=== PATIENT | female | born 1990 | race Caucasian/White ===

== ENCOUNTER 2018-04-05 01:24 | Emergency (ER) | payer OTHER ==
[2018-04-05 01:39] VITALS: BP 169/90; PULSE 84; TEMP 97.5; BMI 23.2
--- NOTE | 2018-04-05 01:39 | PDOC ---
History of Present Illness - General Chief Complaint: Headache Stated Complaint: HEADACHE Time Seen by Provider: 04/05/18 01:38 - History of Present Illness Initial Comments: This 27 y.o. woman with a history of Lyme disease and genital herpes presents with 1 week history of painful, sore neck and headache at the top of her head.No recent trauma/ overuse or fever. she notes seeing green and blue spots in her vision : was seen by her outdoor adventure guides and ocular pathology ruled out. Her PMD gave her Augmentin course to empirically treat sinusitis(finished yesterday). Patient denies previous history of chronic migraine or other type headache Past History - Past Medical History Allergies/Adverse Reactions: Allergies Allergy/AdvReac Type Severity Reaction Status Date / Time Iodinated Contrast- Oral and Allergy Verified 04/05/18 01:28 IV Dye valacyclovir [From Valtrex] Allergy Verified 04/05/18 01:28 Home Medications: Ambulatory Orders Naproxen Sodium [Anaprox Ds] 550 mg PO BID PRN #12 tablet 04/05/18 Tizanidine HCl 2 mg PO TID PRN #12 tablet 04/05/18 Review of Systems - Review of Systems Able to Perform ROS?: Yes Comments:: 12 point review of systems is negative except for what is noted in the history of present illness *Physical Exam - Physical Exam Comments: GENERAL: Adult female, alert and oriented 3, in no acute distress HEAD: Normal with no signs of trauma. EYES: PERRLA, EOMI, sclera anicteric, conjunctiva clear. ENT: Ears normal, nares patent, oropharynx clear without exudates. Moist mucous membranes. NECK: Normal range of motion, pain with flexion but supple and without lymphadenopathy, JVD, or masses. Bilateral paraspinal cervical muscles and bilateral trapezius muscles firm and tender to palpation LUNGS: Breath sounds equal, clear to auscultation bilaterally. No wheezes, and no crackles. HEART:Regular rate and rhythm, normal S1 and S2 without murmur, rub or gallop. ABDOMEN:.normal bowel sounds No guarding,tenderness or rebound.No masses No distention. EXTREMITIES: Normal range of motion, no edema. No clubbing or cyanosis. No erythema, or tenderness. NEUROLOGICAL: Cranial nerves II through XII grossly intact. Normal speech. No focal neurological deficits. Moving all 4 extremities normally and equally MUSCULOSKELETAL:, no CVA tenderness SKIN: Warm, Dry, normal turgor, no rashes or lesions noted. Progress Note - Progress Note Progress Note: Patient states that her LMP was 03/21/18 and was normal in duration and flow. She states she is not currently sexually active and therefore is not . Although laboratory proof of non- is usually obtained prior to imaging studies, patient was eager to have a noncontrast head CT and waived laboratory evaluation to ascertain if she is . Noncontrast head CT performed: Preliminary interpretation by Imaging extension service advisor-no evidence of fracture; no evidence of acute intracranial pathology Clinical exam most consistent with muscle contraction/cervical strain and associated cervicogenic headache. Results discussed with the patient. This patient has not had a neurologic workup for her current episode of protracted headache, she will be given referral information for Dr. Bradshaw. She should call the office tomorrow to make a follow-up exam as soon as possible. Meanwhile, prescriptions for Anaprox DS and tizanidine sent to her pharmacy. She should return to ER if she has more severe headache or develops vomiting/ lethargy Patient understands plan and agrees. *DC/Admit/Observation/Transfer Diagnosis at time of Disposition: Headache Qualifiers: Headache type: tension-type Headache chronicity pattern: unspecified pattern Intractability: not intractable Qualified Code(s): G44.209 - Tension-type headache, unspecified, not intractable - Discharge Dispostion Disposition: HOME Condition at time of disposition: Good - Prescriptions Prescriptions: Naproxen Sodium [Anaprox Ds] 550 mg PO BID PRN #12 tablet PRN Reason: Headache Tizanidine HCl 2 mg PO TID PRN #12 tablet PRN Reason: Muscle Spasms - Referrals Referrals: Cash Bradshaw MD [Staff Physician] - Call tomorrow - Patient Instructions Printed Discharge Instructions: Tension Headache Additional Instructions: Anaprox 550mg twice a day as needed for headache;take with food Tizanidine 2mg up to 3 X a day for muscle spasms- this medication will make you sleepy local warmth to neck and upper back muscles call neurologist(Dr Bradshaw)office tomorrow to arrange followup JESUS return to ER if you have high fever/vomiting - Post Discharge Activity
[2018-04-05] MEDS ORDERED: NAPROXEN 500 MG TABLET (FP) PO ONE (02:58)
[2018-04-05] MEDS ORDERED: NAPROXEN 500 MG TABLET (FP) ONE (03:07)
== END 2018-04-05 03:31 | disposition home or self-care (01) ==
LOC: FER 01:24
DX: G44.209 Tension-type headache, unspecified, not intractable (principal)
CPT/HCPCS: 70450-TC; 99282-25

== ENCOUNTER 2018-09-03 14:03 | Emergency (ER) | payer OTHER ==
[2018-09-03 14:16] VITALS: BMI 21.9
--- NOTE | 2018-09-03 14:22 | PDOC ---
History of Present Illness - General Chief Complaint: Injury Stated Complaint: RT SIDE RIB PAIN Time Seen by Provider: 09/03/18 14:19 - History of Present Illness Initial Comments: 09/05/18 09:26 Chief complaint: Rib pain History of present illness: Patient with pain over the lateral lower rt rib cage , right side, for several days. Pain is worse with deep inspiration and movement of the torso and right arm. Review of systems: No fevers/chills, cough, URI symptoms, sore throat, abdominal pain, shortness of breath, nausea, vomiting, diarrhea. Remainder of systems reviewed and found to be negative Past medical history: Patient has multiple symptoms over months duration, including fatigue, malaise, and generally " not feeling well". Recent workup at another hospital included MRI of the brain, spinal tap, and blood work, which were reportedly negative Social/family history reviewed and noncontributory Physical exam: Alert and oriented well-developed well-nourished distress cooperative Afebrile, vital signs normal PERRLA, fundi benign, ENT clear Neck supple without bruit mass or nodes Chest clear with full breath sounds throughout bilaterally. There is mild tenderness over the costal margin, right lower ribs. There is no crepitus or deformity of the chest wall or rib cage CV S1 and S2 normal without murmur or gallop pulses full and symmetric no JVD or edema no bruits Abdomen nondistended. Bowel sounds normal. Soft without masses tenderness organomegaly. Extremities no CCE Skin clear, no rash, adequate turgor and mucous membranes Neurological C2 to 12 intact. Strength full and symmetric. No focal sensory or motor deficits. Gait stable and unimpaired Impression: Atypical chest pain, most likely costochondritis. No signs or symptoms of serious medical illness Plan: Sedimentation rate is 7. Remainder of labs are normal. Reassurance, symptomatic treatment, referred for follow-up to Dr. Josie Vásquez for further rheumatologic evaluation. Fully ambulatory, cheerful, in no distress at discharge Past History - Past Medical History Allergies/Adverse Reactions: Allergies Allergy/AdvReac Type Severity Reaction Status Date / Time Iodinated Contrast- Oral and Allergy Verified 04/05/18 01:28 IV Dye valacyclovir [From Valtrex] Allergy Verified 04/05/18 01:28 Home Medications: Ambulatory Orders Diclofenac Sodium 50 mg PO QID PRN #20 tablet. 09/03/18 COPD: No Other medical history: HERPES,LYME - Suicide/Smoking/Psychosocial Hx Smoking History: Never smoked Have you smoked in the past 12 months: No Number of Cigarettes Smoked Daily: 0 Information on smoking cessation initiated: No Hx Alcohol Use: No Drug/Substance Use Hx: No (DENIES) *Physical Exam - Vital Signs Last Vital Signs Temp Pulse Resp BP Pulse Ox 98.8 F 80 20 150/95 100 09/03/18 14:04 09/03/18 14:04 09/03/18 14:04 09/03/18 14:04 09/03/18 14:04 ED Treatment Course - LABORATORY CBC & Chemistry Diagram: 09/03/18 16:10 09/03/18 16:10 *DC/Admit/Observation/Transfer Diagnosis at time of Disposition: Costochondral chest pain - Discharge Dispostion Disposition: HOME Condition at time of disposition: Stable Decision to Admit order: No - Prescriptions Prescriptions: Diclofenac Sodium 50 mg PO QID PRN #[address] tablet[address] GUTIERREZ Reason: Pain - Referrals Referrals: Hanna Vásquez MD [Staff Physician] - 1 week - Patient Instructions Printed Discharge Instructions: DI for Costochondritis Additional Instructions: rest, gentle ice massage to lower chest anti-inflammatory medication as directed. see specialist for further evaluation and treatment as directed. - Post Discharge Activity
[2018-09-03 16:24] LABS: BASO % 0.6 % (0-2.0); EOS % 1.5 % (0-4.5); HEMATOCRIT 37.6 % (32.4-45.2); HEMOGLOBIN 12.1 GM/dl (10.7-15.3); LYMPH % 20.9 % (8-40); MCH 26.5 pg (25.7-33.7); MCHC 32.1 g/dl (32.0-36.0); MEAN CELL VOLUME 82.5 fl (80-96); MEAN PLT VOLUME 9.1 fl (7.5-11.1); MONO % 5.3 % (3.8-10.2); NEUT % 71.7 % (42.8-82.8); PLATELET COUNT 243 K/MM3 (134-434); RBC 4.57 M/mm3 (3.60-5.2); RDW 13.9 % (11.6-15.6); WHITE BLOOD COUNT 7.2 K/mm3 (4.0-10.8)
[2018-09-03 16:43] LABS: ALBUMIN 4.5 g/dl (3.4-5.0); BILIRUBIN,TOTAL 0.9 mg/dl (0.2-1); CALCIUM 9.5 mg/dl (8.5-10); CREATININE 0.4 mg/dl (0.55-1.3); POTASSIUM 3.6 mmol/L (3.5-5.1); TOT PROT 8.1 g/dl (6.4-8.2)
[2018-09-03 17:27] VITALS: BP 124/77; PULSE 83; TEMP 98.3
== END 2018-09-03 17:57 | disposition home or self-care (01) ==
LOC: FER 14:03
DX: R07.89 Other chest pain (principal); A69.20 Lyme disease, unspecified
CPT/HCPCS: 36415; 71045-TC-FY; 80053; 81003; 84703; 85025; 85651; 99281-25

== ENCOUNTER 2018-09-05 22:04 | Emergency (ER) | payer OTHER ==
[2018-09-05 22:18] VITALS: BMI 21.9
--- NOTE | 2018-09-05 23:10 | PDOC ---
History of Present Illness - General Chief Complaint: Sore Throat Stated Complaint: HEADACHE Time Seen by Provider: 09/05/18 22:29 - History of Present Illness Initial Comments: 28yo F with PMH of genital herpes, thyroid cyst presenting with multiple complaints starting about one month ago including abnormal throat sensation, pre -syncope, muscle cramps, loss of appetite, nausea, dry cough, and diarrhea. Patient presents to this ED because of concern for worsening symptoms and her headache which she describes as "throbbing." Took tylenol around 2pm with no relief of symptoms. This headache differs from headaches she has had in the past in that this is more severe. Patient endorses some sensitivity to light as well as seeing "pink flashing lights" and "green" today. She states she has felt lightheaded and had three instances today in which she felt like she was going to pass out. No urinary symptoms or abdominal pain. Has been able to swallow food and saliva without any difficulty. Due to a lessened appetite, she feels she is not well hydrated. Denies recent travel or sick contacts. Changed her makeup about three weeks ago and has had new clothing but denies a correlation with her symptoms. Received rabies booster shots on Monday and Monday after possible exposure to a bat (had series of three shots for rabies vaccine in 2010). Last menstrual period was on 08/09/18. Per chart review, patient was seen on 09/03/18 for right-sided rib pain and had a negative workup. Patient saw her primary care physician today and was evaluated with an EKG that was reportedly "normal," with no other workup or interventions. Reports low- grade fever of 99.5F as well as chills. PCP: Dr. Leon Bee Past History - Past Medical History Allergies/Adverse Reactions: Allergies Allergy/AdvReac Type Severity Reaction Status Date / Time diphenhydramine Allergy Severe Swelling Verified 09/05/18 22:13 [From Benadryl] prednisone Allergy Severe Swelling Verified 09/05/18 22:13 Iodinated Contrast- Oral and Allergy Verified 09/05/18 22:13 IV Dye valacyclovir [From Valtrex] Allergy Verified 09/05/18 22:13 Home Medications: Ambulatory Orders Diclofenac Sodium 50 mg PO QID PRN #20 tablet. 09/03/18 COPD: No - Suicide/Smoking/Psychosocial Hx Smoking History: Never smoked Have you smoked in the past 12 months: No Number of Cigarettes Smoked Daily: 0 Information on smoking cessation initiated: No Hx Alcohol Use: No Drug/Substance Use Hx: No Review of Systems - Review of Systems Comments:: Constitutional: +low-grade fever, +chills HEENT: +abnormal throat sensation, no dysphagia Cardiovascular: no chest pain, no palpitations Respiratory: +cough, no shortness of breath Gastrointestinal: +nausea, +diarrhea Genitourinary: no dysuria, no frequency Musculoskeletal: +myalgia, no arthralgia Skin: +rash, no itching Neurologic: +headache, +lightheaded *Physical Exam - Vital Signs Last Vital Signs Temp Pulse Resp BP Pulse Ox 98.0 F 78 18 156/94 100 09/05/18 22:10 09/05/18 22:10 09/05/18 22:10 09/05/18 22:10 09/05/18 22:10 - Physical Exam Comments: General: Awake, alert, and fully oriented, anxious Head: No signs of trauma Eyes: EOMI, sclera anicteric, Visual acuity with corrective glasses: OD 20/20, OS 20/20, OU 20/15 ENT: Dry mucus membranes Neck: Normal ROM, supple Lungs: Lungs clear, Normal breath sounds Cardio: Regular rhythm, S1 and S2 present; Chest: Tenderness to palpation overlying lateral lower right-sided ribs Abdomen: Soft, nontender. No guarding, no rebound, no masses Extremities: Normal range of motion, Distal pulses present SKIN: Warm, Dry, normal turgor Neurologic: Cranial nerves II through XII intact. Normal speech, sensation, strength, coordination, and gait. ED Treatment Course - LABORATORY CBC & Chemistry Diagram: 09/05/18 23:30 09/05/18 23:30 Medical Decision Making - Medical Decision Making 28yo F with PMH of genital herpes, thyroid cyst presenting with multiple complaints including abnormal throat sensation, pre-syncope, muscle cramps, loss of appetite, nausea, dry cough, diarrhea, and headache. DDX including but not limited to tension headache, dehydration, complex migraine , retinal detachment, intracranial mass, allergic reaction, rheumatologic disorder, MS, psychiatric disorder CBC, CMP CT Head Toradol, Reglan, 1L NS 09/05/18 23:08 Normal visual acuity exam. Bedside ocular ultrasound without any signs of retinal detachment Will obtain CT head to rule out acute intracranial pathology, though headache is likely due to dehydration as the patient has had poor po intake today. Other symptoms may be rheumatologic in nature which can be further worked up on an outpatient basis. Patient received rheumatology referral on 09/03/18. Patient signed out to Dr. Butcher 09/06/18 00:04 *DC/Admit/Observation/Transfer Diagnosis at time of Disposition: Headache Qualifiers: Headache type: unspecified Headache chronicity pattern: acute headache Intractability: not intractable Qualified Code(s): R51 - Headache - Discharge Dispostion Disposition: HOME Condition at time of disposition: Stable - Referrals Referrals: Leon Bee [Primary Care Provider] - - Patient Instructions Printed Discharge Instructions: DI for Headache Additional Instructions: You came to the ED for a headache, as well as other complaints. CT imaging of your head did not show acute pathology. Lab work was unremarkable. An ultrasound of your eye and visual acuity exam were also normal. You can take [id number] tylenol or motrin for your headache. Follow the instructions on the medication bottle. Make sure you keep hydrated especially in this hot weather. Follow-up with your primary care physician in 5-7 days to discuss this ED visit and to further evaluate your symptoms. Your care is not complete until you do so. Call and make an appointment. Medical attention is required if: you experience persistent symptoms, have a seizure, or have focal numbness or weakness. If you think you are having an emergency, call for emergency medical services or present to the emergency department right away - Post Discharge Activity
[2018-09-05] MEDS ORDERED: KETOROLAC TROMETHAMINE 30 MG/1 ML VIAL IVPUSH ONE (23:26)
[2018-09-05] MEDS ORDERED: METOCLOPRAMIDE HCL INJECTION 10 MG/2 ML VIAL IVPUSH ONE (23:26)
[2018-09-05] MEDS ORDERED: SODIUM CHLORIDE 2,000 ML IV STA (23:26)
--- NOTE | 2018-09-05 23:42 | PDOC ---
*Physical Exam - Vital Signs Last Vital Signs Temp Pulse Resp BP Pulse Ox 98.0 F 78 18 156/94 100 09/05/18 22:10 09/05/18 22:10 09/05/18 22:10 09/05/18 22:10 09/05/18 22:10 ED Treatment Course - LABORATORY CBC & Chemistry Diagram: 09/05/18 23:30 09/05/18 23:30 Medical Decision Making - Medical Decision Making I have assumed care of the patient from Dr. Balderas, who has discussed the clinical presentation, work-up, and ED course thus far Pt pending labs, CT head, IVF, Reglan, Toradol 09/05/18 23:43 S/p 2L IVF BRIONES resolved Plan for D/C w/ PCP and Neurology f/u Discharge instructions and return precautions given Pt in agreement and verbalized understanding Dispo: home 09/06/18 03:19 *DC/Admit/Observation/Transfer Diagnosis at time of Disposition: Headache Qualifiers: Headache type: unspecified Headache chronicity pattern: acute headache Intractability: not intractable Qualified Code(s): R51 - Headache - Discharge Dispostion Disposition: HOME Condition at time of disposition: Stable Decision to Admit order: No - Referrals Referrals: Leon Bee [Primary Care Provider] - Cash Bradshaw MD [Staff Physician] - - Patient Instructions Printed Discharge Instructions: DI for Headache Additional Instructions: You came to the ED for a headache, as well as other complaints. CT imaging of your head did not show acute pathology. Lab work was unremarkable. An ultrasound of your eye and visual acuity exam were also normal. You can take [id number] tylenol or motrin for your headache. Follow the instructions on the medication bottle. Make sure you keep hydrated especially in this hot weather. Follow-up with your primary care physician in 5-7 days to discuss this ED visit and to further evaluate your symptoms. Your care is not complete until you do so. Call and make an appointment. Medical attention is required if: you experience persistent symptoms, have a seizure, or have focal numbness or weakness. If you think you are having an emergency, call for emergency medical services or present to the emergency department right away - Post Discharge Activity
[2018-09-05 23:49] LABS: BASO % 0.6 % (0-2.0); EOS % 1.7 % (0-4.5); HEMATOCRIT 32.3 % (32.4-45.2); HEMOGLOBIN 10.7 GM/dL (10.7-15.3); LYMPH % 25.6 % (8-40); MCH 26.9 pg (25.7-33.7); MCHC 33.2 g/dl (32.0-36.0); MEAN CELL VOLUME 80.9 fl (80-96); MEAN PLT VOLUME 8.7 fl (7.5-11.1); MONO % 8.5 % (3.8-10.2); NEUT % 63.6 % (42.8-82.8); PLATELET COUNT 196 K/MM3 (134-434); RBC 3.99 M/mm3 (3.60-5.2); RDW 14.9 % (11.6-15.6); WHITE BLOOD COUNT 6.9 K/mm3 (4.0-10.0)
[2018-09-05] MEDS ORDERED: KETOROLAC TROMETHAMINE 30 MG/1 ML VIAL ONE (23:51)
[2018-09-05] MEDS ORDERED: METOCLOPRAMIDE HCL INJECTION 10 MG/2 ML VIAL ONE (23:51)
--- NOTE | 2018-09-06 00:12 | PDOC ---
Documentation entered by Gus Almazan SCRIBE, acting as scribe for Flori De Paz DO. Flori De Paz DO: This documentation has been prepared by the Tha mckeon Xhesika, SCRIBE, under my direction and personally reviewed by me in its entirety. I confirm that the documentation accurately reflects all work, treatment, procedures, and medical decision making performed by me. Attending Attestation - Resident Resident Name: Shereen Balderas - ED Attending Attestation I have performed the following: I have examined & evaluated the patient, The case was reviewed & discussed with the resident, I agree w/resident's findings & plan, Exceptions are as noted - HPI HPI: 09/05/18 23:50 The patient is a 28 year old female, with a significant PMH of thyroid cyst and genital herpes who presents to the emergency department with a sore throat, headache, pre-syncopal episodes and muscle cramps. The patient describes her headache as 10/10, severe frontal throbbing headache that radiates to her back. The patient was seen at [facility] on 09/03/18 for R rib cage pain and was discharged home with normal evaluation/results. The patient states she has been endorsing nausea, chills, fevers, 3 episodes of nbnb diarrhea, and some vision changes where she sees pinkish/green lights and "things floating in her eyes." The patient states she has normal PO and solid intake. The patient denies chest pain, shortness of breath. Denies vomit and constipation. Denies dysuria, frequency, urgency and hematuria. Allergies: NKA, NKDA PCP: Leon Rowe - Physicial Exam PE: 09/05/18 23:51 GENERAL: Awake, alert, and fully oriented, in no acute distress HEAD: No signs of trauma EYES: PERRLA, EOMI, sclera anicteric, conjunctiva clear ENT: Auricles normal inspection, hearing grossly normal, nares patent, oropharynx clear without exudates. Moist mucosa NECK: Normal ROM, supple, no lymphadenopathy, JVD, or masses LUNGS: Breath sounds equal, clear to auscultation bilaterally. No wheezes, and no crackles HEART: Regular rate and rhythm, normal S1 and S2, no murmurs, rubs or gallops Chest Wall: (+) Right lower chest wall tenderness to palpation that is reproducible to touch. ABDOMEN: Soft, nontender, normoactive bowel sounds. No guarding, no rebound. No masses EXTREMITIES: Normal range of motion, no edema. No clubbing or cyanosis. No cords , erythema, or tenderness. No c-spine tenderness to palpation. NEUROLOGICAL: Cranial nerves II through XII grossly intact. Normal speech, normal gait. 5/5 muscle strength and sensation. SKIN: Warm, Dry, normal turgor, no rashes or lesions noted. - Medical Decision Making 09/06/18 00:05 I, Dr. Flori De Paz, DO, attest that this document has been prepared under my direction and personally reviewed by me in its entirety. I further attest, that it accurately reflects all work, treatment, procedures and medical decision -making performed by me. 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 -pt states photophobia, flashing sensation to eyes -denies phonophobia -pt states she took tylenol at home without relief of the bowman -pt states she did see neuro clinic at [facility], but never followed up for the recommended MRI -states she does get bowman about 1x a month -no focal neuro findings -visual acuity 20/20 each eye and 20/15 together -bedside ultrasound without acute findings of retinal detachment or vitreous hemorrhage -will obtain head ct, labs -will medicate and re-eval 09/06/18 02:07 pt states bowman improved states she feels "sticky post nasal gtt" posterior pharynx is clear, no erythema no exudates pt speaking in full clear sentences pt given water and drinking water, tolerating secretions swallowing without difficulty will give tylenol for rib pain cxr was negative pending head ct 09/06/18 02:[address] normal per imaging rock contractor without acute findings 09/06/18 02:13 pt states rib pain, but laying on her R side sleeping 09/06/18 02:[address] head with the patient pt feels better stable for dc to home after ivf hydration and replacement of potassium
[2018-09-06 01:05] LABS: BLOOD UREA NITROGEN 3.8 mg/dL (7-18); CREATININE 0.5 mg/dL (0.55-1.3); POTASSIUM 3.2 mmol/L (3.5-5.1)
[2018-09-06 01:06] LABS: ALBUMIN 4.3 g/dl (3.4-5.0); BILIRUBIN,TOTAL 0.7 mg/dL (0.2-1); CALCIUM 7.5 mg/dL (8.5-10.1); TOT PROT 7.1 g/dl (6.4-8.2)
[2018-09-06 01:11] LABS: URINE APPEARANCE CLEAR; URINE BILIRUBIN NEGATIVE (NEGATIVE); URINE COLOR YELLOW; URINE GLUCOSE (UA) NEGATIVE (NEGATIVE); URINE KETONE NEGATIVE (NEGATIVE); URINE LEUK ESTERASE NEGATIVE (NEGATIVE); URINE NITRITE NEGATIVE (NEGATIVE); URINE PROTEIN NEGATIVE (NEGATIVE); URINE UROBILINOGEN 0.2 mg/dL (0.2-1.0)
[2018-09-06] MEDS ORDERED: SODIUM CHLORIDE 0.9% 1000 ML INFUS.BAG IV ONE (01:57)
[2018-09-06] MEDS ORDERED: POTASSIUM CHLORIDE TABS 20 MEQ TABLET.ER (FP) PO ONE ×2 (01:58→02:20)
[2018-09-06] MEDS ORDERED: ACETAMINOPHEN 1000 MG/100 ML VIAL (NON FORMULARY) IVPB ONE (02:06)
[2018-09-06] MEDS ORDERED: ACETAMINOPHEN INJECTION 100 ML IVPB ONE (02:21)
[2018-09-06 03:12] VITALS: TEMP 97.9
[2018-09-06 04:43] VITALS: BP 150/78; PULSE 78
--- NOTE | 2018-09-09 13:48 | EKG ---
Test Reason : Blood Pressure : / mmHG Vent. Rate : 075 BPM Atrial Rate : 075 BPM P-R Int : 130 ms QRS Dur : 096 ms QT Int : 412 ms P-R-T Axes : 038 085 058 degrees QTc Int : 460 ms NORMAL SINUS RHYTHM NORMAL ECG NO PREVIOUS ECGS AVAILABLE Confirmed by MD ULPE, PIOTR ([id number]) on 09/09/2018 1:47:54 PM Referred By: Confirmed By:PIOTR ANDRADE MD
== END 2018-09-06 04:44 | disposition home or self-care (01) ==
LOC: JER 22:04
PROC: 3E033NZ Introduction of Analgesics, Hypnotics, Sedatives into Peripheral Vein, Percutaneous Approach (ICD-10-PCS; principal; 2018-09-05)
PROC: 3E0333Z Introduction of Anti-inflammatory into Peripheral Vein, Percutaneous Approach (ICD-10-PCS; 2018-09-05)
PROC: 3E033GC Introduction of Other Therapeutic Substance into Peripheral Vein, Percutaneous Approach (ICD-10-PCS; 2018-09-05)
PROC: 3E0337Z Introduction of Electrolytic and Water Balance Substance into Peripheral Vein, Percutaneous Approach (ICD-10-PCS; 2018-09-05)
DX: R51 Headache (principal); B00.9 Herpesviral infection, unspecified
CPT/HCPCS: 36415; 70450-TC; 80053; 81003; 84702; 85025; 93005; 93010; 99281-25; J0131; J7030

== ENCOUNTER 2018-09-12 14:47 | Inpatient (IN) | payer OTHER ==
[2018-09-12] MEDS ORDERED: ACETAMINOPHEN 500 MG TABLET (FP) PO ONE (15:14)
[2018-09-12 15:15] VITALS: BMI 21.9
--- NOTE | 2018-09-12 15:15 | PDOC ---
Rapid Medical Evaluation Time Seen by Provider: 09/12/18 15:11 Medical Evaluation: Allergies Allergy/AdvReac Type Severity Reaction Status Date / Time diphenhydramine Allergy Severe Swelling Verified 09/12/18 15:10 [From Benadryl] prednisone Allergy Severe Swelling Verified 09/12/18 15:10 Iodinated Contrast- Oral and Allergy Verified 09/12/18 15:10 IV Dye valacyclovir [From Valtrex] Allergy Verified 09/12/18 15:10 09/12/18 15:11 HPI: sick x1 month with dull headache and weakness, exposed to bat in 2010, received rabavert and recently exposed again but waited 20 days prior to vaccination (asleep in room with bat) PE: No gross deficits ORDERS: Labs Discharge Disposition - Diagnosis Malaise - Referrals - Patient Instructions - Post Discharge Activity
[2018-09-12 15:58] LABS: HCG,QUALITATIVE URINE Negative
[2018-09-12 16:00] LABS: EPI CELLS 0.4 /HPF (0-5/HPF); HYALINE CASTS 0 /lpf (0-8); URINE APPEARANCE CLEAR; URINE BILIRUBIN NEGATIVE (NEGATIVE); URINE COLOR YELLOW; URINE GLUCOSE (UA) NEGATIVE (NEGATIVE); URINE KETONE 1+ (NEGATIVE); URINE LEUK ESTERASE NEGATIVE (NEGATIVE); URINE NITRITE NEGATIVE (NEGATIVE); URINE PROTEIN NEGATIVE (NEGATIVE); URINE RBC 26 /hpf (0-4); URINE UROBILINOGEN 0.2 mg/dL (0.2-1.0); URINE WBC 1 /hpf (0-5)
[2018-09-12 16:17] LABS: BASO % 0.4 % (0-2.0); EOS % 0.6 % (0-4.5); HEMOGLOBIN 10.5 GM/dL (10.7-15.3); MCH 27.2 pg (25.7-33.7); MCHC 32.8 g/dl (32.0-36.0); MEAN CELL VOLUME 82.7 fl (80-96); MONO % 3.9 % (3.8-10.2); NEUT % 73.1 % (42.8-82.8); PLATELET COUNT 253 K/MM3 (134-434); RBC 3.87 M/mm3 (3.60-5.2); RDW 15.4 % (11.6-15.6); WHITE BLOOD COUNT 6.4 K/mm3 (4.0-10.0)
[2018-09-12] MEDS ORDERED: IBUPROFEN 400 MG TABLET (FP) PO ONE ×2 (17:35→18:24)
[2018-09-12 18:12] LABS: ALBUMIN 4.1 g/dl (3.4-5.0); BILIRUBIN,TOTAL 0.6 mg/dL (0.2-1); BLOOD UREA NITROGEN 4.9 mg/dL (7-18); CREATININE 0.6 mg/dL (0.55-1.3); POTASSIUM 3.6 mmol/L (3.5-5.1); TOT PROT 7.5 g/dl (6.4-8.2)
[2018-09-12 18:39] LABS: ALBUMIN 4.4 g/dl (3.4-5.0); BILIRUBIN,TOTAL 0.5 mg/dL (0.2-1); BLOOD UREA NITROGEN 3.4 mg/dL (7-18); CALCIUM 9.5 mg/dL (8.5-10.1); CREATININE 0.6 mg/dL (0.55-1.3); POTASSIUM 3.6 mmol/L (3.5-5.1); TOT PROT 7.7 g/dl (6.4-8.2)
--- NOTE | 2018-09-12 19:41 | PDOC ---
History of Present Illness - General Chief Complaint: Pain, Acute Stated Complaint: DOUBLE VISION/LT LEG PAIN Time Seen by Provider: 09/12/18 15:11 History Source: Patient Exam Limitations: No Limitations Past History - Past Medical History Allergies/Adverse Reactions: Allergies Allergy/AdvReac Type Severity Reaction Status Date / Time diphenhydramine Allergy Severe Swelling Verified 09/12/18 15:10 [From Benadryl] prednisone Allergy Severe Swelling Verified 09/12/18 15:10 Iodinated Contrast- Oral and Allergy Verified 09/12/18 15:10 IV Dye valacyclovir [From Valtrex] Allergy Verified 09/12/18 15:10 Home Medications: Ambulatory Orders NK [No Known Home Medication] 09/12/18 COPD: No Other medical history: rabies exposure 2010, august and september 2018 - Suicide/Smoking/Psychosocial Hx Smoking History: Never smoked Have you smoked in the past 12 months: No Number of Cigarettes Smoked Daily: 0 Hx Alcohol Use: No Drug/Substance Use Hx: No (DENIES) *Physical Exam - Vital Signs Last Vital Signs Temp Pulse Resp BP Pulse Ox 98.4 F 93 H 20 146/87 100 09/12/18 15:12 09/12/18 15:12 09/12/18 15:12 09/12/18 15:12 09/12/18 15:12 - Physical Exam General Appearance: No: Apparent Distress HEENT: positive: EOMI, CYNDI, Other (vision 20/70 R eye, 20/50 L eye, 20/50 both eyes; vision improved to 20/50 R eye with pinhole exam, L eye stayed same with pinhole) Neck: positive: Supple Respiratory/Chest: positive: Lungs Clear, Normal Breath Sounds. negative: Respiratory Distress Cardiovascular: positive: Regular Rhythm, Regular Rate, S1, S2. negative: Murmur Gastrointestinal/Abdominal: positive: Normal Bowel Sounds, Soft. negative: Tender, Distended, Guarding, Rebound Neurologic: positive: ship fitter II-XII NML intact, Fully Oriented, Alert, Normal Mood/ Affect, Motor Strength 5/5, Other (normal gait). negative: Confused, Disoriented ED Treatment Course - LABORATORY CBC & Chemistry Diagram: 09/12/18 15:19 09/12/18 17:51 - ADDITIONAL ORDERS Additional order review: Laboratory Results 09/12/18 09/12/18 09/12/18 17:51 17:51 15:24 D-Dimer < 215 Sodium 137 Potassium 3.6 Chloride 105 Carbon Dioxide 25 Anion Gap 7 L BUN 3.4 L Creatinine 0.6 Est GFR (CKD-EPI)AfAm 142.76 Est GFR (CKD-EPI)NonAf 123.17 Random Glucose 93 Calcium 9.5 Total Bilirubin 0.5 AST 11 L ALT 27 Alkaline Phosphatase 34 L Total Protein 7.7 Albumin 4.4 Urine Color Yellow Urine Appearance Clear Urine pH 5.0 Ur Specific [place] 1.008 L Urine Protein Negative Urine Glucose (UA) Negative Urine Ketones 1+ H Urine Blood 2+ H Urine Nitrite Negative Urine Bilirubin Negative Urine Urobilinogen 0.2 Ur Leukocyte Esterase Negative Urine WBC (Auto) 1 Urine RBC (Auto) 26 Urine Casts (Auto) 0 U Epithel Cells (Auto) 0.4 Urine Bacteria (Auto) 2.0 Urine HCG, Qual Negative 09/12/18 15:19 D-Dimer Sodium 136 Potassium 3.6 Chloride 102 Carbon Dioxide 27 Anion Gap 7 L BUN 4.9 L Creatinine 0.6 Est GFR (CKD-EPI)AfAm 142.76 Est GFR (CKD-EPI)NonAf 123.17 Random Glucose 126 H Calcium 9.0 Total Bilirubin 0.6 AST 11 L ALT 27 Alkaline Phosphatase 32 L Total Protein 7.5 Albumin 4.1 Urine Color Urine Appearance Urine pH Ur Specific [place] Urine Protein Urine Glucose (UA) Urine Ketones Urine Blood Urine Nitrite Urine Bilirubin Urine Urobilinogen Ur Leukocyte Esterase Urine WBC (Auto) Urine RBC (Auto) Urine Casts (Auto) U Epithel Cells (Auto) Urine Bacteria (Auto) Urine HCG, Qual 09/12/18 15:19 RBC 3.87 MCV 82.7 MCHC 32.8 RDW 15.4 MPV 9.0 Neutrophils % 73.1 Lymphocytes % 22.0 Monocytes % 3.9 Eosinophils % 0.6 Basophils % 0.4 - RADIOLOGY Radiology Studies Ordered: Category Date Time Status CHEST CT WITHOUT CONTRAST [CT] Stat CT Scan 09/12/18 18:59 Ordered BRAIN MRI W/O CONTRAST [MRI] Stat MRI 09/12/18 19:13 Ordered CERVICAL SPINE MRI W/O CONTR [MRI] Stat MRI 09/12/18 19:13 Ordered - Medications Given in the ED: ED Medications Discontinued Medications Generic Name Dose Route Start Last Admin Trade Name Freq PRN Reason Stop Dose Admin Acetaminophen 1,000 mg 09/12/18 15:14 09/12/18 18:21 Tylenol - PO 09/12/18 15:15 1,000 mg ONCE ONE Administration Ibuprofen 800 mg 09/12/18 17:35 09/12/18 18:20 Motrin - PO 09/12/18 17:36 800 mg ONCE ONE Administration Medical Decision Making - Medical Decision Making 28 y/o F with hx of genital herpes presents with B/L rib pain for "several weeks " along with c/o changes in vision also going on for several weeks, worsening yesterday. Patient states she is seeing green/pink spots, vertical black lines and has double vision. Also c/o LLE cramps/leg weakness. This is patient's 3rd visit to ED this month for similar complaints. Patient requesting CT of her chest as states her ENT doctor was going to do one for her outpatient; is concerned about possible PE; states her ENT suggested possible mold traveling to her lungs; was recently treated for sinusitis and is concerned the infection is possibly spreading and causing her symptoms. Also mentions she had bat bite her back in 2010 for which she received rabies vaccine and last month, also noted a bat in her room (unsure if it bit her but saw it flying around her house ; got repeat rabies series last month at [facility]). Denies sob, abd pain, n/v/d, urinary complaints. Was on OCPs but they were stopped last month Patient has had CXR and CT head this month which were normal; also has had bedside ocular ultrasound done last visit which was also normal D-dimer negative so unlikely PE Consider MS? Case d/w Dr. Barrow and recommends MRI brain and cervical spine without contrast to further assess; will see her inpatient 09/12/18 19:41 *DC/Admit/Observation/Transfer Diagnosis at time of Disposition: Malaise, Double vision - Discharge Dispostion Decision to Admit order: Yes - Referrals Referrals: Leon Bee [Primary Care Provider] - - Patient Instructions - Post Discharge Activity
--- NOTE | 2018-09-12 21:55 | PN ---
Teaching Attending Note Name of Resident: Elenita Merino ATTENDING PHYSICIAN STATEMENT I saw and evaluated the patient. I reviewed the resident's note and discussed the case with the resident. I agree with the resident's findings and plan as documented. SUBJECTIVE: Seen and examined; please refer to resident note for further historical information. Briefly, this is a 28 y/o female presenting with visual changes and nonspecific neuro symptoms; has been seen here multiple times this month in ER for same complaints. Had concerns of bat exposure (s/p rabies series [facility]- records pending). Neurology recommends inpatient MRI; preliminary read is negative. OBJECTIVE: NAD, AAO, resting in bed Visual disturbances noted with some dip; moves all 4 ext with normal sensorium NC AT EOMI PERRLA RRR s1/2 no mgr Lungs CTAB, w/ sym exp Normal mood, appropriate behavior CBC with mild normocytic anemia (12 earlier, now 12.5), UA with 2+ blood CT chest/abd/pelvis read as essentially normal Brain/C-spine MRI pending final report; negative prelim read per imaging contracts paralegal. ASSESSMENT AND PLAN: Patient presents with visual field changes; will r/o MS per neurology # Visual Changes # Normocytic Anemia # Hematuria # Hx Genital Herpes # ?Bat Exposure s/p rabies series at [facility] Observing on medicine; negative preliminary imaging. Can check B12, inflammatory markers, HIV screen, RPR. Will defer further workup to neurology. Will place on neuro checks overnight. Pending further neurology recommendations can likely be discharged home. Iron studies were sent for anemia and may be followed up nonurgently; she should have repeat UA done nonurgently to ensure followup hematuria. Of note is that the patient is requesting various subspeciality consults and relays history of recent admission to [facility] with extensive workup, concern of fungal infection that ENT was workng her up as an outpatient, etc. I told her that it would be in her best interest to get these records from the OP clinics and outside hospitals in order to coordinate her care. She relayed concerns about the lumbar puncture site which appears normal, etc.
--- NOTE | 2018-09-12 23:18 | HP ---
CHIEF COMPLAINT: Double vision PCP: HISTORY OF PRESENT ILLNESS: Patient presents today with double vision that began a week ago. She describes having new vision problems over the past month. Describes photophobia over the last few weeks from general ambient light and her cellphone. Recently she has been having double vision, along with pink and green flashes of light. Along with black streaks and floaters. These visual disturbances come and go, with her most recent episode occurring during examination. She also endorses a dull headache in the occipital region of head, 1 month of bilateral rib pain with no association with inspiration or expiration , 1 month of dry cough with a mucus feeling in her mouth, low grade fever of 99.5F which she measured at home today, stiff neck, leg weakness for approximately 1month, pain in her lumbar back for a few weeks, along with diarrhea for the past few days and muscle aches. She denies any chest pain or shortness of breath. ER course was notable for: (1)CT of Chest, Abdomen, and pelvis was done w/o contrast and showed no fractures. (2)MR of the c-spine was done which showed no evidence of MS or cord lesions (3)MRI of the brain was done without contrast and showed right maxillary sinusitis. Recent Travel: None PAST MEDICAL HISTORY: Previous exposure to Rabies in 2010, and again 1 month ago. Was given rabies vaccines as per patient. Genital herpes from 2012, last outbreak 1 week ago but unsure. PAST SURGICAL HISTORY: None Social History: Smoking:Denies Alcohol:Occasional drinks on the weekends, no use for past month. Drugs: Denies Family History: Allergies diphenhydramine [From Benadryl] Allergy (Severe, Verified 09/12/18 15:10) Swelling prednisone Allergy (Severe, Verified 09/12/18 15:10) Swelling Iodinated Contrast- Oral and IV Dye Allergy (Verified 09/12/18 15:10) valacyclovir [From Valtrex] Allergy (Verified 09/12/18 15:10) HOME MEDICATIONS: Home Medications Medication Instructions Recorded NK [No Known Home Medication] 09/12/18 REVIEW OF SYSTEMS As above CONSTITUTIONAL: fever, loss of appetite,generalized weakness, weight change ( loss of 10 lbs due to not eating), Absent: chills, diaphoresis,malaise, HEENT: Absent: rhinorrhea, nasal congestion, throat pain, throat swelling, difficulty swallowing, mouth swelling, CARDIOVASCULAR: Absent: chest pain, syncope, palpitations, irregular heart rate, lightheadedness , peripheral edema RESPIRATORY: Absent: cough, shortness of breath, dyspnea with exertion, orthopnea, wheezing, stridor, hemoptysis GASTROINTESTINAL:diarrhea Absent: abdominal pain, abdominal distension, nausea, vomiting, melena, hematochezian MUSCULOSKELETAL: Absent: myalgia, arthralgia, joint swelling, back pain, neck pain SKIN: Absent: rash, itching, pallor HEMATOLOGIC/IMMUNOLOGIC: Absent: easy bleeding, easy bruising, lymphadenopathy, frequent infections ENDOCRINE: Absent: unexplained weight gain, unexplained weight loss, heat intolerance, cold intolerance NEUROLOGIC: Absent: headache, focal weakness or paresthesias, dizziness, unsteady gait, seizure, mental status changes, bladder or bowel incontinence PSYCHIATRIC: Absent: anxiety, depression, suicidal or homicidal ideation, hallucinations. PHYSICAL EXAMINATION Vital Signs - 24 hr 09/12/18 15:12 Temperature 98.4 F Pulse Rate 93 H Respiratory 20 Rate Blood Pressure 146/87 O2 Sat by Pulse 100 Oximetry (%) GENERAL: Awake, alert, and fully oriented, in no acute distress. HEAD: Normal with no signs of trauma. EYES: Pupils equal, round and reactive to light, extraocular movements intact, sclera anicteric, conjunctiva clear. No lid lag. EARS, NOSE, THROAT: Ears normal, nares patent, oropharynx clear without exudates. Moist mucous membranes. NECK: Normal range of motion, supple without lymphadenopathy, JVD, or masses. LUNGS: Breath sounds equal, clear to auscultation bilaterally. No wheezes, and no crackles. No accessory muscle use. HEART: Regular rate and rhythm, normal S1 and S2 without murmur, rub or gallop. ABDOMEN: Soft, nontender, not distended, normoactive bowel sounds, no guarding, no rebound, no masses. No hepatomegaly or splenomegaly. MUSCULOSKELETAL: Normal range of motion at all joints. No bony deformities or tenderness. No CVA tenderness. UPPER EXTREMITIES: 2+ pulses, warm, well-perfused. No cyanosis. No clubbing. No peripheral edema. LOWER EXTREMITIES: 2+ pulses, warm, well-perfused. No calf tenderness. No peripheral edema. NEUROLOGICAL: Cranial nerves II: Visual blind spot in left lower quadrant, diploplia in left upper quadrant. III-XII intact. Normal speech. Normal gait. SKIN: Warm, dry, normal turgor, no rashes or lesions noted, normal capillary refill. Laboratory Results - last 24 hr 09/12/18 09/12/18 09/12/18 15:19 15:19 15:24 WBC 6.4 RBC 3.87 Hgb 10.5 L Hct 32.0 L MCV 82.7 MCH 27.2 MCHC 32.8 RDW 15.4 Plt Count 253 D MPV 9.0 Absolute Neuts (auto) 4.7 Neutrophils % 73.1 Lymphocytes % 22.0 Monocytes % 3.9 Eosinophils % 0.6 Basophils % 0.4 Nucleated RBC % 0 D-Dimer Sodium 136 Potassium 3.6 Chloride 102 Carbon Dioxide 27 Anion Gap 7 L BUN 4.9 L Creatinine 0.6 Est GFR (CKD-EPI)AfAm 142.76 Est GFR (CKD-EPI)NonAf 123.17 Random Glucose 126 H Calcium 9.0 Total Bilirubin 0.6 AST 11 L ALT 27 Alkaline Phosphatase 32 L Total Protein 7.5 Albumin 4.1 Urine Color Yellow Urine Appearance Clear Urine pH 5.0 Ur Specific [place] 1.008 L Urine Protein Negative Urine Glucose (UA) Negative Urine Ketones 1+ H Urine Blood 2+ H Urine Nitrite Negative Urine Bilirubin Negative Urine Urobilinogen 0.2 Ur Leukocyte Esterase Negative Urine WBC (Auto) 1 Urine RBC (Auto) 26 Urine Casts (Auto) 0 U Epithel Cells (Auto) 0.4 Urine Bacteria (Auto) 2.0 Urine HCG, Qual Negative 09/12/18 09/12/18 17:51 17:51 WBC RBC Hgb Hct MCV MCH MCHC RDW Plt Count MPV Absolute Neuts (auto) Neutrophils % Lymphocytes % Monocytes % Eosinophils % Basophils % Nucleated RBC % D-Dimer < 215 Sodium 137 Potassium 3.6 Chloride 105 Carbon Dioxide 25 Anion Gap 7 L BUN 3.4 L Creatinine 0.6 Est GFR (CKD-EPI)AfAm 142.76 Est GFR (CKD-EPI)NonAf 123.17 Random Glucose 93 Calcium 9.5 Total Bilirubin 0.5 AST 11 L ALT 27 Alkaline Phosphatase 34 L Total Protein 7.7 Albumin 4.4 Urine Color Urine Appearance Urine pH Ur Specific [place] Urine Protein Urine Glucose (UA) Urine Ketones Urine Blood Urine Nitrite Urine Bilirubin Urine Urobilinogen Ur Leukocyte Esterase Urine WBC (Auto) Urine RBC (Auto) Urine Casts (Auto) U Epithel Cells (Auto) Urine Bacteria (Auto) Urine HCG, Qual ASSESSMENT/PLAN: 28 year old female with PMH of rabies exposure in 2010 and 1 month ago, genital herpes who presents with nonspecific neurological complaints, with preliminary imaging and labs negative for any neurological lesions. 1) Nonspecific neurological findings: Neurology consulted Patient mentioned many visits to clinics in [facility] and [facility]. Obtaining records and files would help with diagnosing. Vitamin B12, ESR, CRP pending 2)Hematuria in urinalysis Follow up with repeat U/A. Can be done outpatient. 3)Anemia Follow up with iron studies. Can be done outpatient. DVT Prophylaxis: SCDs F: no fluids E: monitor BMP N: regular diet Dispo: Admitted to floors. Problem List - Problem (1) Double vision Code(s): H53.2 - DIPLOPIA (2) Malaise Code(s): R53.81 - OTHER MALAISE (3) Costochondral chest pain Code(s): R07.1 - CHEST PAIN ON BREATHING (4) Headache Code(s): R51 - HEADACHE Qualifiers: Headache type: unspecified Headache chronicity pattern: acute headache Intractability: not intractable Qualified Code(s): R51 - Headache Visit type - Emergency Visit Emergency Visit: Yes ED Registration Date: 09/12/18 Care time: The patient presented to the Emergency Department on the above date and was hospitalized for further evaluation of their emergent condition. - New Patient This patient is new to me today: Yes Date on this admission: 09/12/18 - Critical Care Critical Care patient: No ATTENDING PHYSICIAN STATEMENT I saw and evaluated the patient. I reviewed the resident's note and discussed the case with the resident. I agree with the resident's findings and plan as documented. SUBJECTIVE: OBJECTIVE: ASSESSMENT AND PLAN:
[2018-09-13 06:48] VITALS: BP 133/81; PULSE 67; TEMP 98
--- NOTE | 2018-09-13 08:05 | DS ---
Physical Exam: SUBJECTIVE: Patient seen and examined at bedside. Unable to attain full history as patient wanted to leave AMA. Educated pt on the risks of leaving AMA. OBJECTIVE: Physical exam not completed due to patient leaving AMA overnight. Vital Signs Period Temp Pulse Resp BP Sys/Grossman Pulse Ox Last 24 Hr 97.9 F-98.4 F 66-93 16-20 129-146/80-87 100-100 LABS Laboratory Results - last 24 hr Laboratory Last Values WBC 6.4 K/mm3 (4.0-10.0) 09/12/18 15:19 RBC 3.87 M/mm3 (3.60-5.2) 09/12/18 15:19 Hgb 10.5 GM/dL (10.7-15.3) L 09/12/18 15:19 Hct 32.0 % (32.4-45.2) L 09/12/18 15:19 MCV 82.7 fl (80-96) 09/12/18 15:19 MCH 27.2 pg (25.7-33.7) 09/12/18 15:19 MCHC 32.8 g/dl (32.0-36.0) 09/12/18 15:19 RDW 15.4 % (11.6-15.6) 09/12/18 15:19 Plt Count 253 K/MM3 (134-434) D 09/12/18 15:19 MPV 9.0 fl (7.5-11.1) 09/12/18 15:19 Absolute Neuts (auto) 4.7 K/mm3 (1.5-8.0) 09/12/18 15:19 Neutrophils % 73.1 % (42.8-82.8) 09/12/18 15:19 Lymphocytes % 22.0 % (8-40) 09/12/18 15:19 Monocytes % 3.9 % (3.8-10.2) 09/12/18 15:19 Eosinophils % 0.6 % (0-4.5) 09/12/18 15:19 Basophils % 0.4 % (0-2.0) 09/12/18 15:19 Nucleated RBC % 0 % (0-0) 09/12/18 15:19 D-Dimer < 215 ng/ml (0-500) 09/12/18 17:51 Sodium 137 mmol/L (136-145) 09/12/18 17:51 Potassium 3.6 mmol/L (3.5-5.1) 09/12/18 17:51 Chloride 105 mmol/L (98-107) 09/12/18 17:51 Carbon Dioxide 25 mmol/L (21-32) 09/12/18 17:51 Anion Gap 7 MMOL/L (8-16) L 09/12/18 17:51 BUN 3.4 mg/dL (7-18) L 09/12/18 17:51 Creatinine 0.6 mg/dL (0.55-1.3) 09/12/18 17:51 Est GFR (CKD-EPI)AfAm 142.76 09/12/18 17:51 Est GFR (CKD-EPI)NonAf 123.17 09/12/18 17:51 Random Glucose 93 mg/dL (74-106) 09/12/18 17:51 Calcium 9.5 mg/dL (8.5-10.1) 09/12/18 17:51 Total Bilirubin 0.5 mg/dL (0.2-1) 09/12/18 17:51 AST 11 U/L (15-37) L 09/12/18 17:51 ALT 27 U/L (13-61) 09/12/18 17:51 Alkaline Phosphatase 34 U/L (45-117) L 09/12/18 17:51 Total Protein 7.7 g/dl (6.4-8.2) 09/12/18 17:51 Albumin 4.4 g/dl (3.4-5.0) 09/12/18 17:51 Urine Color Yellow 09/12/18 15:24 Urine Appearance Clear 09/12/18 15:24 Urine pH 5.0 (5.0-8.0) 09/12/18 15:24 Ur Specific [place] 1.008 (1.010-1.035) L 09/12/18 15:24 Urine Protein Negative (NEGATIVE) 09/12/18 15:24 Urine Glucose (UA) Negative (NEGATIVE) 09/12/18 15:24 Urine Ketones 1+ (NEGATIVE) H 09/12/18 15:24 Urine Blood 2+ (NEGATIVE) H 09/12/18 15:24 Urine Nitrite Negative (NEGATIVE) 09/12/18 15:24 Urine Bilirubin Negative (NEGATIVE) 09/12/18 15:24 Urine Urobilinogen 0.2 mg/dL (0.2-1.0) 09/12/18 15:24 Ur Leukocyte Esterase Negative (NEGATIVE) 09/12/18 15:24 Urine WBC (Auto) 1 /hpf (0-5) 09/12/18 15:24 Urine RBC (Auto) 26 /hpf (0-4) 09/12/18 15:24 Urine Casts (Auto) 0 /lpf (0-8) 09/12/18 15:24 U Epithel Cells (Auto) 0.4 /HPF (0-5/HPF) 09/12/18 15:24 Urine Bacteria (Auto) 2.0 /hpf (NEGATIVE) 09/12/18 15:24 Urine HCG, Qual Negative 09/12/18 15:24 HOSPITAL COURSE: 28 y.o. F presnted to [facility] with doplopia for 1 week duration. Pt endorse visual changes over the past month with photophobia that comes and goes, and is also associated with headaches. Pt endorsed having a recent lumbar puncture for "flu-like symptoms" at another facility. We recommended a neurologist evaluate her for r/o MS, but she said she would prefer to go to her ID doctor today outpatient. Patient left AMA today. Risks of leaving AMA were explained to her prior to departure. Date of Admission:09/12/18 CT abd/ pel: Limited, but essentially normal CT scan of the chest, abdomen and pelvis with no evidence of rib fracture or acute pathology. CT Chest: Limited, but essentially normal CT scan of the chest, abdomen and pelvis with no evidence of rib fracture or acute pathology. MRI brain: Normal noncontrast MRI of the brain Normal signal intensity of the brain parenchyma, no evidence of edema, acute ischemia changes, hemorrhage, or demyelinating process. MRI C-spine: Normal signal intensity of the spinal cord. Date of Discharge: 09/13/18 Minutes to complete discharge: 36 Discharge Summary Reason For Visit: DIPLOPIA Current Active Problems Double vision (Acute) Malaise (Acute) Condition: Stable - Instructions Disposition: AGAINST MEDICAL ADVICE - Home Medications Comprehensive Discharge Medication List: Ambulatory Orders NK [No Known Home Medication] 09/12/18 This patient is new to me today: No Emergency Visit: No Critical Care patient: No - Discharge Referral Referred to [facility] Med P.C.: No ATTENDING PHYSICIAN STATEMENT I saw and evaluated the patient. I reviewed the resident's note and discussed the case with the resident. I agree with the resident's findings and plan as documented. SUBJECTIVE: OBJECTIVE: ASSESSMENT AND PLAN:
--- NOTE | 2018-09-13 12:06 | PN ---
Teaching Attending Note Name of Resident: Brie Boogie ATTENDING PHYSICIAN STATEMENT I reviewed the resident's note and discussed the case with the resident. I agree with the resident's findings and plan as documented. SUBJECTIVE:pt signed out AMA prior to my assessment. as per RN the patient was not willing to wait to be assessed and possibly discharged.
--- NOTE | 2018-09-20 15:22 | EKG ---
Test Reason : Blood Pressure : / mmHG Vent. Rate : 073 BPM Atrial Rate : 073 BPM P-R Int : 124 ms QRS Dur : 100 ms QT Int : 396 ms P-R-T Axes : 038 084 060 degrees QTc Int : 436 ms NORMAL SINUS RHYTHM NORMAL ECG WHEN COMPARED WITH ECG OF 05-SEP-2018 23:09, NO SIGNIFICANT CHANGE WAS FOUND Confirmed by JESSE WHITAKER MD ([id number]) on 09/20/2018 3:22:13 PM Referred By: Confirmed By:JESSE WHITAKER MD
== END 2018-09-13 09:20 | disposition left against medical advice (07) | DRG 82 ==
LOC: JER 14:47 → JERBED 19:53 → J4S 09-13 01:31
PROVIDERS: ADMIT Internal Medicine; ATTEND Internal Medicine
DX: H53.2 Diplopia (principal); A60.09 Herpesviral infection of other urogenital tract; R31.9 Hematuria, unspecified; D64.9 Anemia, unspecified; R51 Headache; R53.81 Other malaise; R07.1 Chest pain on breathing
CPT/HCPCS: 36415; 70551-TC; 71250-TC; 72141-TC; 74176-TC; 80053; 81003; 84703; 85025; 85379; 87086; 93005; 93010; 99283-25

== ENCOUNTER 2018-09-13 16:35 | Emergency (ER) | payer OTHER ==
--- NOTE | 2018-09-13 16:41 | PDOC ---
Rapid Medical Evaluation Time Seen by Provider: 09/13/18 16:38 Medical Evaluation: Allergies Allergy/AdvReac Type Severity Reaction Status Date / Time diphenhydramine Allergy Severe Swelling Verified 09/12/18 15:10 [From Benadryl] prednisone Allergy Severe Swelling Verified 09/12/18 15:10 Iodinated Contrast- Oral and Allergy Verified 09/12/18 15:10 IV Dye valacyclovir [From Valtrex] Allergy Verified 09/12/18 15:10 09/13/18 16:38 I have performed a brief in-person evaluation of this patient. The patient presents with a chief complaint of: neck stiffness, double vision Pertinent physical exam findings: gait steady. No focal deficits. I have ordered the following: nothing The patient will proceed to the ED for further evaluation. Discharge Disposition - Diagnosis Double vision - Referrals Referrals: Leon Bee [Primary Care Provider] - - Patient Instructions - Post Discharge Activity
[2018-09-13 16:42] VITALS: BP 163/81; PULSE 85; TEMP 97.9; BMI 21.9
--- NOTE | 2018-09-13 17:13 | PDOC ---
History of Present Illness - General History Source: Patient Exam Limitations: No Limitations - History of Present Illness Initial Comments: 28 yo F PMH genital herpes, p/w BRIONES, weakness, diplopia, and diarrhea. Patient AMKyra'd yesterday after receiving an MRI and did not see neurology. She states that she saw an infectious disease specialist, who suggested that she see a neurologist. Timeline: Beginning of August: bat seen three times August 12: start of flu-like symptoms with cough, muscle pain, slight muscle weakness and diplopia with flashers August 24: due to worsening muscle weakness and more frequent flashers with colors, goes to ER. Lumbar tap performed, negative. September 12: comes into ER and gets MRI, leaves AMA before seeing neurology ROS Dull headache, back of head Diplopia "Black bar in vision of L eye", seen when looking to the left Cough, with black sputum Nausea without vomiting Photophobia (worsens BRIONES) Neck pain w/o rigidity, shoots down entire spine to the coccyx Intermittent CP, not currently feeling Muscle weakness in legs, manifests as difficulty standing Diarrhea since 1400, yellow and burning R rib pain, thinks this is due to coughing Bruising, starting last week Denies abdominal pain, SOB, constipation. 09/13/18 17:36 <Katarzyna Pace - Last Filed: 09/13/18 19:13> <Jammie Can - Last Filed: 09/13/18 19:27> - General Chief Complaint: Lightheaded Stated Complaint: CHEST PAIN,NECK PAIN Time Seen by Provider: 09/13/18 16:38 Past History - Past Medical History COPD: No Other medical history: Gen Herpes - Immunization History Immunization Up to Date: No - Suicide/Smoking/Psychosocial Hx Smoking History: Never smoked Have you smoked in the past 12 months: No Number of Cigarettes Smoked Daily: 0 Information on smoking cessation initiated: No Hx Alcohol Use: No Drug/Substance Use Hx: No <Katarzyna Pace - Last Filed: 09/13/18 19:13> <Jammie Can - Last Filed: 09/13/18 19:27> - Past Medical History Allergies/Adverse Reactions: Allergies Allergy/AdvReac Type Severity Reaction Status Date / Time diphenhydramine Allergy Severe Swelling Verified 09/13/18 16:42 [From Benadryl] prednisone Allergy Severe Swelling Verified 09/13/18 16:42 Iodinated Contrast- Oral and Allergy Verified 09/13/18 16:42 IV Dye valacyclovir [From Valtrex] Allergy Verified 09/13/18 16:42 Home Medications: Ambulatory Orders NK [No Known Home Medication] 09/12/18 Review of Systems - Review of Systems Constitutional: Yes: See HPI HEENTM: Yes: See HPI Respiratory: Yes: See HPI Cardiac (ROS): Yes: See HPI ABD/GI: Yes: See HPI Musculoskeletal: Yes: See HPI Integumentary: Yes: See HPI Neurological: Yes: See HPI Hematologic/Lymphatic: Yes: See HPI <Katarzyna Pace - Last Filed: 09/13/18 19:13> *Physical Exam - Vital Signs Last Vital Signs Temp Pulse Resp BP Pulse Ox 97.9 F 85 19 163/81 100 09/13/18 16:39 09/13/18 16:39 09/13/18 16:39 09/13/18 16:39 09/13/18 16:39 - Physical Exam Comments: Snellen's: R eye 20/30, L eye 20/50 09/13/18 18:44 General Appearance: Yes: Nourished, Appropriately Dressed. No: Apparent Distress HEENT: positive: EOMI, CYNDI, Normal ENT Inspection, Normal Voice, Symmetrical, Pharynx Normal, Hearing Grossly Normal. negative: Hearing Decreased Neck: positive: Trachea midline, Normal Thyroid, Supple Respiratory/Chest: positive: Lungs Clear, Normal Breath Sounds. negative: Chest Tender, Respiratory Distress, Accessory Muscle Use Cardiovascular: positive: Regular Rhythm, Regular Rate Gastrointestinal/Abdominal: positive: Normal Bowel Sounds, Soft. negative: Tender, Distended, Guarding, Rebound, Tenderness Musculoskeletal: positive: Vertebral Tenderness (From cervical down to coccyx). negative: CVA Tenderness Extremity: positive: Normal Inspection, Normal Range of Motion. negative: Tender Integumentary: positive: Normal Color, Dry, Warm, Rash (L and R AC fossa), Bruising (mutiple sites on legs, arms, buttocks) Neurologic: positive: onboarding specialist II-XII NML intact, Fully Oriented, Alert, Motor Strength 5/5, Finger to Nose (normal). negative: Numbness, Sensory Deficit <Katarzyna Pace - Last Filed: 09/13/18 19:13> - Vital Signs Last Vital Signs Temp Pulse Resp BP Pulse Ox 97.9 F 85 19 163/81 100 09/13/18 16:39 09/13/18 16:39 09/13/18 16:39 09/13/18 16:39 09/13/18 16:39 <Jammie Can - Last Filed: 09/13/18 19:27> Medical Decision Making - Medical Decision Making Called neurology, will f/u with Dr. Barrow call back. 09/13/18 18:[address] Barrow, wants her to follow up outpatient with him. 09/13/18 19:13 <Katarzyna Pace - Last Filed: 09/13/18 19:13> *DC/Admit/Observation/Transfer - Discharge Dispostion Decision to Admit order: No <Katarzyna Pace - Last Filed: 09/13/18 19:13> - Discharge Dispostion Decision to Admit order: No <Jammie Can - Last Filed: 09/13/18 19:27> Diagnosis at time of Disposition: Double vision, Headache - Discharge Dispostion Disposition: HOME Condition at time of disposition: Good - Referrals Referrals: Leon Bee [Primary Care Provider] - Jordin Barrow DO [Staff Physician] - Frederick Del Rosario MD [Staff Physician] - Malcolm Fonseca MD [Staff Physician] - - Patient Instructions Printed Discharge Instructions: DI for Double Vision, DI for Headache Additional Instructions: 1) Please follow-up with your primary care doctor in the next 1-2 days. Please call tomorrow for for any urgent issues. we have given you neurologists to follow up, we spoke with business administration program chair Dr Barrow who can arrange an appointment with you if you call 2) You were given a copy of the tests performed today. Please bring the results with you and review them with your primary care doctor. Your laboratory / imaging results were normal, including your recent MRI 3) If you have any worsening of symptoms or any other concerns please return to the ED immediately. Return if worsening symptoms including fevers, headache, vomiting, visual or hearing disturbances, abdominal pain, chest pain, shortness of breath, syncope, dehydration, inability to take things by mouth/vomiting, altered mental status, or worsening concerning symptoms. 4) Please continue taking your home medications as directed. Stay well hydrated and rest adequately. Make an appointment. If you cannot follow-up with your primary care doctor please return to the ED - Post Discharge Activity
--- NOTE | 2018-09-13 18:57 | PDOC ---
Documentation entered by Gus Almazan SCRIBE, acting as scribe for Jammie Can MD. Jammie Can MD: This documentation has been prepared by the Tha mckeon Xhesika, SCRIBE, under my direction and personally reviewed by me in its entirety. I confirm that the documentation accurately reflects all work, treatment, procedures, and medical decision making performed by me. Attending Attestation - Resident Resident Name: Katarzyna Pace - ED Attending Attestation I have performed the following: I have examined & evaluated the patient, The case was reviewed & discussed with the resident, I agree w/resident's findings & plan - HPI HPI: 09/13/18 18:55 28 yo F PMH genital herpes, p/w BRIONES, weakness, diplopia, and diarrhea. Patient AMA'd yesterday after receiving an MRI and did not see neurology. She states that she saw an infectious disease specialist, who suggested that she see a neurologist. mri head/brain normal. c spine normal. Beginning in August, sx started of flu-like symptoms with cough, muscle pain, slight muscle weakness and diplopia with flashers August 24: due to worsening muscle weakness and more frequent flashers with colors, goes to ER. Lumbar tap performed, negative. September 12: admitted x 1 day, left [place] prior to full neuro eval 09/13/18 18:55 - Physicial Exam PE: 09/13/18 18:55 Agree with the resident's HPI and PE as documented in the electronic medical record. NAD, well appearing, EOMI, PERRL, visual acuity intact 20/30 and 20/50. nl conjunctiva, anicteric; neck supple. lungs clear, RRR, abdomen soft nontender. Back nontender. LOERA x4, no focal neuro deficits. speech clear, crosses legs. No peripheral edema. normal color for ethnicity, WWP. 09/13/18 19:28 - Medical Decision Making 09/13/18 18:56 History of physical examination as Dr. Rascon. Vital signs normal. Neurologically intact, no acute symptoms currently, visual acuity is within normal limits, she has had over 1 month of symptoms and was at the infectious disease specialist today. reviewed her admission workup including MRI brain and C-spine which were unremarkable. call to neuro, Dr Barrow to discuss case outpatient followup Pt to be discharged in stable condition. Patient and family made aware of clinical impression, treatment recommendations and disposition plan, return precautions discussed (including but not limited to new or persistent/worsening symptoms, pain, fevers, or signs of infection, chest pain, respiratory distress , inability to tolerate oral intake, dehydration, syncope, or neurologic changes ). Follow up with PMD and/or specialist as recommended, follow up information provided, take medications as instructed for duration of time. continue with supportive care, avoid triggers and precipitants. All questions answered to patient's satisfaction and expressed understanding and comfort with this. At the time of discharge, the patient is alert, clinically improved, tolerating po and verbalizes understanding of instructions, satisfied with the care received and felt comfortable with the plan. Patient does not suffer from an acute life- threatening medical condition at this time and is safe for outpatient follow- up.
== END 2018-09-13 19:33 | disposition home or self-care (01) ==
LOC: JER 16:35
DX: R51 Headache (principal); H53.2 Diplopia
CPT/HCPCS: 99281-25

== ENCOUNTER 2018-09-28 19:34 | Emergency (ER) | payer OTHER | END 2018-09-29 00:53 | disposition home or self-care (01) | LOC: JER 09-29 00:53 ==

== ENCOUNTER 2022-12-27 14:43 | Emergency (ER) | payer OTHER ==
[2022-12-27 15:01] VITALS: BP 120/79; PULSE 69; RESP 20; TEMP 97.8; BMI 23.3
[2022-12-27 17:40] LABS: URINE APPEARANCE CLEAR; URINE BILIRUBIN NEGATIVE (NEGATIVE); URINE COLOR YELLOW; URINE GLUCOSE (UA) NEGATIVE (NEGATIVE); URINE KETONE NEGATIVE (NEGATIVE); URINE LEUK ESTERASE NEGATIVE (NEGATIVE); URINE NITRITE NEGATIVE (NEGATIVE); URINE PROTEIN NEGATIVE (NEGATIVE); URINE UROBILINOGEN 0.2 mg/dL (0.2-1.0)
[2022-12-27 17:42] LABS: HCG,QUALITATIVE URINE Negative
[2022-12-27 17:57] LABS: BASO % 0.4 % (0-2.0); EOS % 1.7 % (0-4.5); HEMATOCRIT 36.8 % (32.4-45.2); HEMOGLOBIN 12.3 GM/dL (10.7-15.3); LYMPH % 27.1 % (8-40); MCH 26.8 pg (25.7-33.7); MCHC 33.5 g/dl (32.0-36.0); MEAN CELL VOLUME 80.1 fl (80-96); MEAN PLT VOLUME 8.9 fl (7.5-11.1); MONO % 5.6 % (3.8-10.2); NEUT % 65.2 % (42.8-82.8); PLATELET COUNT 210 10^3/uL (134-434); RDW 14.5 % (11.6-15.6); WHITE BLOOD COUNT 6.8 K/mm3 (4.0-10.0)
[2022-12-27 18:20] LABS: POTASSIUM 4.5 mmol/L (3.5-5.1)
[2022-12-27 18:21] LABS: CALCIUM 9.1 mg/dL (8.5-10.1)
[2022-12-27 18:22] LABS: ALBUMIN 3.9 g/dl (3.4-5.0); BLOOD UREA NITROGEN 6.2 mg/dL (7-18)
[2022-12-27 18:25] LABS: CREATININE 0.5 mg/dL (0.55-1.3)
[2022-12-27 18:27] LABS: BILIRUBIN,TOTAL 0.4 mg/dL (0.2-1); TOT PROT 7.5 g/dl (6.4-8.2)
== END 2022-12-27 19:12 | disposition home or self-care (01) ==
LOC: JER 14:43
DX: R06.02 Shortness of breath (principal); R07.9 Chest pain, unspecified; R00.2 Palpitations; R07.81 Pleurodynia; Z20.822 Contact with and (suspected) exposure to COVID-19
CPT/HCPCS: 0241U-QW; 36415; 71045-TC-FY; 80053; 81003; 84703; 85025; 85379; 87086; 93005; 93010; 99285-25

== ENCOUNTER 2023-05-29 12:38 | Emergency (ER) | payer OTHER ==
[2023-05-29 12:43] VITALS: BP 159/79; PULSE 78; RESP 18; TEMP 97.8; BMI 23.3
[2023-05-29] MEDS ORDERED: LACTATED RINGERS SOLUTION 1000 ML INFUS.BAG IV ONE (13:22)
[2023-05-29 14:23] LABS: PH,URINE 5.5 (5.0-8.0); URINE APPEARANCE CLEAR; URINE BILIRUBIN NEGATIVE (NEGATIVE); URINE COLOR YELLOW; URINE GLUCOSE (UA) NEGATIVE (NEGATIVE); URINE KETONE NEGATIVE (NEGATIVE); URINE LEUK ESTERASE NEGATIVE (NEGATIVE); URINE NITRITE NEGATIVE (NEGATIVE); URINE PROTEIN NEGATIVE (NEGATIVE); URINE UROBILINOGEN 0.2 mg/dL (0.2-1.0)
[2023-05-29 14:23] LABS: BASO % 0.7 % (0-2.0); HEMATOCRIT 36.3 % (32.4-45.2); HEMOGLOBIN 11.9 GM/dL (10.7-15.3); LYMPH % 38.1 % (8-40); MCH 26.8 pg (25.7-33.7); MCHC 32.9 g/dl (32.0-36.0); MEAN CELL VOLUME 81.6 fl (80-96); MEAN PLT VOLUME 8.5 fl (7.5-11.1); MONO % 6.1 % (3.8-10.2); NEUT % 53.1 % (42.8-82.8); PLATELET COUNT 229 10^3/uL (134-434); RBC 4.45 M/mm3 (3.60-5.2); RDW 14.3 % (11.6-15.6)
[2023-05-29 15:11] LABS: POTASSIUM 3.7 mmol/L (3.5-5.1)
[2023-05-29 15:13] LABS: ALBUMIN 3.8 g/dl (3.4-5.0); BLOOD UREA NITROGEN 8.4 mg/dL (7-18); CALCIUM 9.6 mg/dL (8.5-10.1)
[2023-05-29 15:17] LABS: CREATININE 0.6 mg/dL (0.55-1.3)
[2023-05-29 15:18] LABS: BILIRUBIN,TOTAL 0.6 mg/dL (0.2-1); TOT PROT 7.7 g/dl (6.4-8.2)
== END 2023-05-29 16:00 | disposition home or self-care (01) ==
LOC: JER 12:38
DX: R07.2 Precordial pain (principal); R42 Dizziness and giddiness; R82.998 Other abnormal findings in urine; Z20.822 Contact with and (suspected) exposure to COVID-19
CPT/HCPCS: 0241U-QW; 36415; 71046-TC-FY; 80053; 81003; 84484; 84703; 85025; 87086; 93005; 93010; 99285-25

== ENCOUNTER 2023-06-14 11:47 | Emergency (ER) | payer OTHER ==
[2023-06-14 11:55] VITALS: BP 142/92; PULSE 90; RESP 18; TEMP 98.4; BMI 22.3
[2023-06-14] MEDS ORDERED: METOCLOPRAMIDE HCL INJECTION 10 MG/2 ML VIAL ONE (15:08)
[2023-06-14] MEDS: METOCLOPRAMIDE HCL INJECTION 10 MG/2 ML VIAL IVPUSH ONE (15:27)
[2023-06-14] MEDS: MECLIZINE HCL 25 MG TABLET (FP) PO ONE (15:27)
[2023-06-14] MEDS: SODIUM CHLORIDE 0.9% 500 ML INFUS.BAG IV ONE (15:27)
[2023-06-14 15:36] LABS: BASO % 0.6 % (0-2.0); EOS % 2.1 % (0-4.5); HCG,QUALITATIVE URINE Negative; HEMATOCRIT 38.2 % (32.4-45.2); HEMOGLOBIN 12.3 GM/dL (10.7-15.3); LYMPH % 31.1 % (8-40); MCH 26.5 pg (25.7-33.7); MCHC 32.2 g/dl (32.0-36.0); MEAN CELL VOLUME 82.3 fl (80-96); MONO % 5.4 % (3.8-10.2); NEUT % 60.8 % (42.8-82.8); PLATELET COUNT 234 10^3/uL (134-434); RBC 4.64 M/mm3 (3.60-5.2); RDW 14.7 % (11.6-15.6); WHITE BLOOD COUNT 6.2 K/mm3 (4.0-10.0)
[2023-06-14 15:43] LABS: URINE APPEARANCE CLEAR; URINE BILIRUBIN NEGATIVE (NEGATIVE); URINE COLOR YELLOW; URINE GLUCOSE (UA) NEGATIVE (NEGATIVE); URINE KETONE NEGATIVE (NEGATIVE); URINE LEUK ESTERASE NEGATIVE (NEGATIVE); URINE NITRITE NEGATIVE (NEGATIVE); URINE PROTEIN NEGATIVE (NEGATIVE); URINE UROBILINOGEN 0.2 mg/dL (0.2-1.0)
[2023-06-14] MEDS ORDERED: diphenhydrAMINE HCL 25 MG CAPSULE (FP) PO ONE (15:46)
[2023-06-14] MEDS: diphenhydrAMINE HCL 25 MG CAPSULE (FP) PO ONE (15:47)
[2023-06-14 15:52] LABS: POTASSIUM 4.3 mmol/L (3.5-5.1)
[2023-06-14 15:55] LABS: CALCIUM 9.6 mg/dL (8.5-10.1)
[2023-06-14 15:56] LABS: BLOOD UREA NITROGEN 6.8 mg/dL (7-18)
[2023-06-14 15:59] LABS: CREATININE 0.6 mg/dL (0.55-1.3)
[2023-06-14 16:00] LABS: BILIRUBIN,TOTAL 0.6 mg/dL (0.2-1)
== END 2023-06-14 17:18 | disposition home or self-care (01) ==
LOC: JER 11:47
DX: R42 Dizziness and giddiness (principal); R11.0 Nausea
CPT/HCPCS: 36415; 80053; 81003; 84703; 85025; 99283-25

== ENCOUNTER 2023-10-12 12:28 | Emergency (ER) | payer OTHER ==
[2023-10-12 12:51] VITALS: BP 135/81; PULSE 86; RESP 18; TEMP 98.1; BMI 18.1
== END 2023-10-12 15:03 | disposition home or self-care (01) ==
LOC: JERFT 12:28
DX: R09.81 Nasal congestion (principal); R05.9 Cough, unspecified; R50.9 Fever, unspecified; R61 Generalized hyperhidrosis; U07.1 COVID-19
CPT/HCPCS: 0241U-QW; 99283-25

== ENCOUNTER 2024-04-22 13:01 | Emergency (ER) | payer OTHER ==
[2024-04-22 13:08] VITALS: TEMP 97.6; BMI 23.8
[2024-04-22 14:24] LABS: EPI CELLS 1 /uL (0-25.1); HCG,QUALITATIVE URINE Negative; HYALINE CASTS 0 /uL (0-3.1); PH,URINE 5.5 (5.0-8.0); URINE APPEARANCE CLEAR; URINE BACTERIA 8 /uL (0-1359); URINE BILIRUBIN NEGATIVE (NEGATIVE); URINE COLOR YELLOW; URINE GLUCOSE (UA) NEGATIVE (NEGATIVE); URINE KETONE NEGATIVE (NEGATIVE); URINE LEUK ESTERASE NEGATIVE (NEGATIVE); URINE NITRITE NEGATIVE (NEGATIVE); URINE PROTEIN NEGATIVE (NEGATIVE); URINE RBC 1 /uL (0-23.9); URINE UROBILINOGEN 0.2 mg/dL (0.2-1.0); URINE WBC 1 /uL (0-25.8)
[2024-04-22 14:41] LABS: THROAT:GRP A STREP NOT DETECTED (NOTDETECTED)
[2024-04-22 15:12] LABS: POTASSIUM 4.2 mmol/L (3.5-5.1)
[2024-04-22 15:14] LABS: CALCIUM 9.1 mg/dL (8.5-10.1)
[2024-04-22 15:17] LABS: CREATININE 0.5 mg/dL (0.55-1.3)
[2024-04-22 15:19] LABS: BILIRUBIN,TOTAL 0.3 mg/dL (0.2-1); TOT PROT 7.9 g/dl (6.4-8.2)
[2024-04-22 15:35] LABS: BASO % 0.6 % (0-2.0); EOS % 3.2 % (0-4.5); HEMOGLOBIN 11.9 GM/dL (10.7-15.3); LYMPH % 41.2 % (8-40); MCH 26.6 pg (25.7-33.7); MCHC 33.2 g/dl (32.0-36.0); MEAN CELL VOLUME 80.2 fl (80-96); MEAN PLT VOLUME 8.6 fl (7.5-11.1); MONO % 6.5 % (3.8-10.2); NEUT % 48.5 % (42.8-82.8); PLATELET COUNT 232 10^3/uL (134-434); RBC 4.48 M/mm3 (3.60-5.2); RDW 15.3 % (11.6-15.6)
[2024-04-22 16:02] VITALS: BP 130/79; PULSE 82; RESP 20
== END 2024-04-22 16:02 | disposition home or self-care (01) ==
LOC: JER 13:01
DX: R51.9 Headache, unspecified (principal); R11.2 Nausea with vomiting, unspecified; H53.149 Visual discomfort, unspecified; R42 Dizziness and giddiness; Z20.822 Contact with and (suspected) exposure to COVID-19
CPT/HCPCS: 0241U-QW; 36415; 80053; 81003; 84443; 84703; 85025; 87086; 87651; 99283-25

== ENCOUNTER 2024-10-20 12:41 | Emergency (ER) | payer OTHER ==
[2024-10-20 12:45] VITALS: TEMP 98.2; BMI 23.6
[2024-10-20 13:57] LABS: ABSOLUTE IMMATURE GRANULOCYTES 0.02 x10^3/uL (0.0-0.031); BASOPHILS # 0.04 x10^3/uL (0.01-0.08); EOSINOPHIL % 1.8 % (0.7-5.8); EOSINOPHILS # 0.08 x10^3/uL (0.04-0.36); MCHC 30.6 g/dl (32.2-35.5); MEAN CELL VOLUME 83.8 fl (79.4-94.8); MEAN PLT VOLUME 11.0 fl (9.4-12.3); MONOCYTE # 0.30 x10^3/uL (0.24-0.86); MONOCYTE % 6.7 % (4.7-12.5); RDW 13.8 % (12.1-16.8)
[2024-10-20 13:59] LABS: URINE APPEARANCE CLEAR; URINE BILIRUBIN NEGATIVE (NEGATIVE); URINE COLOR YELLOW; URINE GLUCOSE (UA) NEGATIVE (NEGATIVE); URINE KETONE NEGATIVE (NEGATIVE); URINE LEUK ESTERASE NEGATIVE (NEGATIVE); URINE NITRITE NEGATIVE (NEGATIVE); URINE PROTEIN NEGATIVE (NEGATIVE); URINE UROBILINOGEN 0.2 mg/dL (0.2-1.0)
[2024-10-20 14:02] LABS: HCG,QUALITATIVE URINE Negative
[2024-10-20 14:22] LABS: GLUCOSE,RANDOM 93.0 mg/dL (74-106); TOT PROT 7.5 g/dl (6.4-8.2)
[2024-10-20 14:23] LABS: CO2 23.0 mmol/L (21-32)
[2024-10-20 14:25] LABS: ALK PHOS 35.0 U/L (40-150)
[2024-10-20 14:28] LABS: CREATININE 0.6 mg/dL (0.55-1.3); SGOT/AST 17.0 U/L (5-34); SGPT/ALT 17.0 U/L (0-55)
[2024-10-20] MEDS ORDERED: LACTATED RINGERS SOLUTION 1,000 ML/1,000 ML INFUS.BAG IV STA (16:04)
[2024-10-20 16:11] VITALS: BP 145/69; PULSE 70; RESP 16
== END 2024-10-20 16:35 | disposition home or self-care (01) ==
LOC: JER 12:41
DX: K52.9 Noninfective gastroenteritis and colitis, unspecified (principal); R10.31 Right lower quadrant pain; R10.32 Left lower quadrant pain
CPT/HCPCS: 36415; 74176-TC; 76830-TC; 80053; 81003; 84703; 85025; 87086; 99284-25